=== PATIENT | male | born 1975 | race Caucasian/White ===

== ENCOUNTER → 2017-01-14 | Outpatient (CLI) | payer OTHER | LOC: CIMAGING 15:57 | PROVIDERS: ATTEND Physician Assistant Medical | DX: M25.462 Effusion, left knee (principal) | CPT/HCPCS: 73564-PO ==

== ENCOUNTER → 2017-11-30 | Outpatient (CLI) | payer OTHER | LOC: FIMAGING 10:31 | PROVIDERS: ATTEND Psychiatry & Neurology Neurology | DX: M43.17 Spondylolisthesis, lumbosacral region (principal); M99.73 Connective tissue and disc stenosis of intervertebral foramina of lumbar region ==